=== PATIENT | male | born 1980 | race Caucasian/White ===

== ENCOUNTER 2021-09-07 01:20 | Emergency (ER) | payer MEDICAID ==
[~2021-09-07] VITALS: Ht 172.7 cm; Wt 75.0 kg
[~2021-09-07 01:20] MED LIST: ALBU6.7H9 INH; CYCL-1 PO; MAGN296S70 PO; NAPR500T6 PO; OMEP40CA21 PO; ONDA4TAB6 PO; PANT-47 PO
[2021-09-07 02:16] VITALS: BP 135/91
== END 2021-09-07 02:20 ==
LOC: ER 01:21
DX: S71.112A Laceration without foreign body, left thigh, initial encounter (principal); W54.0XXA Bitten by dog, initial encounter; Y93.89 Activity, other specified; Y92.89 Other specified places as the place of occurrence of the external cause; Y99.8 Other external cause status
CPT/HCPCS: 73590; 99283

== ENCOUNTER 2021-09-11 09:38 | Emergency (ER) | payer MEDICAID ==
[~2021-09-11] VITALS: Ht 177.8 cm; Wt 74.5 kg
[2021-09-11] MEDS ORDERED: vancomycin/NS 1 GM ADD-VANTAGE 250 ML IV ONE (10:30)
[2021-09-11 10:45] LABS: BASOPHILS % (AUTO) 0.3 % (0-1); EOSINOPHILS # (AUTO) 0.1 X10'3 (0-0.9); EOSINOPHILS % (AUTO) 0.9 % (0-6); HEMATOCRIT 39.3 % (42.0-52.0); HEMOGLOBIN 13.2 g/dl (14.0-17.9); LYMPHOCYTES # (AUTO) 1.5 X10'3 (1.1-4.8); LYMPHOCYTES % (AUTO) 14.3 % (21-51); MEAN CORPUSCULAR HEMOGLOBIN 31.4 PG (27.0-31.0); MEAN CORPUSCULAR HGB CONC 33.6 g/dL (33.0-36.5); MEAN CORPUSCULAR VOLUME 93.5 FL (78-98); MEAN PLATELET VOLUME 7.1 FL (7.4-10.4); MONOCYTES # (AUTO) 0.8 X10'3 (0-0.9); MONOCYTES % (AUTO) 8.1 % (2-12); NEUTROPHILS # (AUTO) 7.9 X10'3 (1.8-7.7); NEUTROPHILS % (AUTO) 76.4 % (42-75); PLATELET COUNT 375 X10'3 (140-440); RED CELL DISTRIBUTION WIDTH 13.3 % (11.5-14.5); WHITE BLOOD COUNT 10.4 X10'3 (4.5-11.0)
[2021-09-11 10:58] LABS: ALANINE AMINOTRANSFERASE 74 U/L (12-78); ALBUMIN 3.3 G/DL (3.4-5.0); ALBUMIN/GLOBULIN RATIO 0.8 (1.1-1.5); ALKALINE PHOSPHATASE 75 IU/L (46-116); ANION GAP 13 (8-16); ASPARTATE AMINO TRANSFERASE 48 U/L (10-37); BILIRUBIN,TOTAL 0.7 MG/DL (0.1-1.0); BLOOD UREA NITROGEN 18 MG/DL (7-18); BUN/CREATININE RATIO 21.4 (5.4-32.0); C-REACTIVE PROTEIN 6.87 MG/DL (0.0-0.5); CALCIUM 8.9 MG/DL (8.5-10.1); CHLORIDE 104 MMOL/L (99-107); CREATININE 0.84 MG/DL (0.60-1.10); GLUCOSE 94 MG/DL (70-104); POTASSIUM 4.2 MMOL/L (3.5-5.1); SODIUM 143 MMOL/L (135-145); TOTAL CARBON DIOXIDE 26.2 MMOL/L (24-32); TOTAL PROTEIN 7.5 G/DL (6.4-8.2); eGFR > 90 ML/MIN
[2021-09-11 11:45] VITALS: BP 108/69
[2021-09-11] MEDS ORDERED: DOXYCYCLINE 100MG CAPSULE PO STA (12:17)
[2021-09-11] MEDS ORDERED: DOXY100C76 PO (12:32)
== END 2021-09-11 12:40 | disposition home or self-care (01) ==
LOC: ER 09:39
DX: L03.116 Cellulitis of left lower limb (principal); G89.29 Other chronic pain; F41.9 Anxiety disorder, unspecified; F32.9 Major depressive disorder, single episode, unspecified; F12.90 Cannabis use, unspecified, uncomplicated; F15.90 Other stimulant use, unspecified, uncomplicated; W54.0XXD Bitten by dog, subsequent encounter; Z56.0 Unemployment, unspecified; Z59.00 Homelessness unspecified; Z72.89 Other problems related to lifestyle; Z87.891 Personal history of nicotine dependence; Z88.8 Allergy status to other drugs, medicaments and biological substances; Z79.899 Other long term (current) drug therapy; Z87.442 Personal history of urinary calculi
CPT/HCPCS: 36415; 80053; 83605; 84145; 85025; 85651; 86140; 96365; 99284; J3370

== ENCOUNTER 2021-09-22 06:36 | Emergency (ER) | payer MEDICAID ==
[~2021-09-22] VITALS: Ht 172.7 cm; Wt 66.5 kg
[2021-09-22 06:48] VITALS: BP 110/77
== END 2021-09-22 07:45 | disposition home or self-care (01) ==
LOC: ER 06:37
DX: T14.8XXD Other injury of unspecified body region, subsequent encounter (principal); Z88.5 Allergy status to narcotic agent; Z87.442 Personal history of urinary calculi; G89.29 Other chronic pain; F31.9 Bipolar disorder, unspecified; F12.10 Cannabis abuse, uncomplicated; F15.10 Other stimulant abuse, uncomplicated; F11.10 Opioid abuse, uncomplicated; Z79.899 Other long term (current) drug therapy; Z48.00 Encounter for change or removal of nonsurgical wound dressing; X58.XXXD Exposure to other specified factors, subsequent encounter
CPT/HCPCS: 99282; A6258; A6449

== ENCOUNTER 2021-09-23 22:54 | Emergency (ER) | payer MEDICAID ==
[~2021-09-23] VITALS: Ht 175.3 cm; Wt 63.6 kg
[2021-09-23] MEDS ORDERED: LIDOcaine 1% W/epiNEPHrine 1:100,000 20ml vial IJ ONE (23:25)
[2021-09-23] MEDS ORDERED: ketorolac trometh. 30mg/ml inj. IV ONE (23:25)
[2021-09-23 23:50] LABS: BASOPHILS # (AUTO) 0.1 X10'3 (0-0.2); BASOPHILS % (AUTO) 0.5 % (0-1); EOSINOPHILS % (AUTO) 0.3 % (0-6); HEMOGLOBIN 12.3 g/dl (14.0-17.9); LYMPHOCYTES # (AUTO) 1.7 X10'3 (1.1-4.8); LYMPHOCYTES % (AUTO) 15.7 % (21-51); MEAN CORPUSCULAR HEMOGLOBIN 30.8 PG (27.0-31.0); MEAN CORPUSCULAR HGB CONC 33.2 g/dL (33.0-36.5); MEAN CORPUSCULAR VOLUME 92.7 FL (78-98); MEAN PLATELET VOLUME 7.1 FL (7.4-10.4); MONOCYTES % (AUTO) 8.9 % (2-12); NEUTROPHILS # (AUTO) 8.1 X10'3 (1.8-7.7); NEUTROPHILS % (AUTO) 74.6 % (42-75); PLATELET COUNT 462 X10'3 (140-440); RED CELL DISTRIBUTION WIDTH 13.1 % (11.5-14.5); WHITE BLOOD COUNT 10.9 X10'3 (4.5-11.0)
[2021-09-23 23:58] LABS: ALANINE AMINOTRANSFERASE 43 U/L (12-78); ALBUMIN 3.4 G/DL (3.4-5.0); ALBUMIN/GLOBULIN RATIO 0.8 (1.1-1.5); ALKALINE PHOSPHATASE 75 IU/L (46-116); ANION GAP 9 (8-16); ASPARTATE AMINO TRANSFERASE 41 U/L (10-37); BILIRUBIN,TOTAL 0.5 MG/DL (0.1-1.0); BLOOD UREA NITROGEN 18 MG/DL (7-18); BUN/CREATININE RATIO 17.6 (5.4-32.0); CALCIUM 8.9 MG/DL (8.5-10.1); CHLORIDE 103 MMOL/L (99-107); CREATININE 1.02 MG/DL (0.60-1.10); GLUCOSE 89 MG/DL (70-104); POTASSIUM 4.2 MMOL/L (3.5-5.1); SODIUM 140 MMOL/L (135-145); TOTAL PROTEIN 7.5 G/DL (6.4-8.2); eGFR 80 ML/MIN
[2021-09-24] MEDS ORDERED: LORazepam 2 mg/ml vial IV ONE (00:10)
[2021-09-24] MEDS: clindamycin 300mg/D5W 50mL 50 ML IV SCH ×2 (00:17→01:03)
[2021-09-24] MEDS ORDERED: bacitracin 15gm ointment TP ONE (01:15)
--- NOTE | 2021-09-24 03:30 | NUR ---
DR. MERCER WAS NOTIFIED OF BRADYCARDIA WHEN PT. IS SLEEPING. HEART RATE IMPROVES UPON BEING WOKEN UP.
--- NOTE | 2021-09-24 04:26 | NUR ---
NOTIFIED DR. MERCER OF PT. HAVING NOSE BLEED.
[2021-09-24] MEDS ORDERED: CLIN-104 PO (05:31)
[2021-09-24 06:51] VITALS: BP 105/65
== END 2021-09-24 06:53 | disposition home or self-care (01) ==
LOC: ER 22:55
DX: L97.819 Non-pressure chronic ulcer of other part of right lower leg with unspecified severity (principal); M79.662 Pain in left lower leg; S81.852D Open bite, left lower leg, subsequent encounter; G89.29 Other chronic pain; F12.90 Cannabis use, unspecified, uncomplicated; F15.90 Other stimulant use, unspecified, uncomplicated; Z87.442 Personal history of urinary calculi; Z87.19 Personal history of other diseases of the digestive system; Z56.0 Unemployment, unspecified; Z59.00 Homelessness unspecified; Z72.89 Other problems related to lifestyle; Z88.8 Allergy status to other drugs, medicaments and biological substances; Z79.2 Long term (current) use of antibiotics; Z79.899 Other long term (current) drug therapy; W54.0XXD Bitten by dog, subsequent encounter
CPT/HCPCS: 36415; 73590; 80053; 83605; 84145; 85025; 87040; 87070; 87075; 87077; 87186; 96374; 96375; 99285; J1885; J2060; J3490; A6449

== ENCOUNTER 2022-11-14 21:15 | Emergency (ER) | payer MEDICAID, OTHER ==
[~2022-11-14] VITALS: Ht 172.7 cm; Wt 77.3 kg
[~2022-11-14 21:15] MED LIST changes: +ALBU6.7H14 INH; -ALBU6.7H9 INH; -MAGN296S70 PO; +MAGN296S89 PO
[2022-11-14 23:13] LABS: BASOPHILS # (AUTO) 0.1 X10'3 (0-0.2); BASOPHILS % (AUTO) 1.2 % (0-1); EOSINOPHILS % (AUTO) 0 % (0-6); HEMATOCRIT 43.8 % (42.0-52.0); HEMOGLOBIN 15.1 g/dl (14.0-17.9); LYMPHOCYTES # (AUTO) 0.5 X10'3 (1.1-4.8); MEAN CORPUSCULAR HEMOGLOBIN 31.6 PG (27.0-31.0); MEAN CORPUSCULAR HGB CONC 34.4 g/dL (33.0-36.5); MEAN CORPUSCULAR VOLUME 91.7 FL (78-98); MEAN PLATELET VOLUME 7.4 FL (7.4-10.4); MONOCYTES # (AUTO) 0.6 X10'3 (0-0.9); MONOCYTES % (AUTO) 5.3 % (2-12); NEUTROPHILS # (AUTO) 10.6 X10'3 (1.8-7.7); NEUTROPHILS % (AUTO) 89.5 % (42-75); PLATELET COUNT 204 X10'3 (140-440); RED BLOOD COUNT 4.78 X10'6 (4.70-6.10); RED CELL DISTRIBUTION WIDTH 12.7 % (11.5-14.5); WHITE BLOOD COUNT 11.8 X10'3 (4.5-11.0)
[2022-11-14 23:29] LABS: ALANINE AMINOTRANSFERASE 71 U/L (12-78); ALBUMIN 4.2 G/DL (3.4-5.0); ALBUMIN/GLOBULIN RATIO 1.2 (1.1-1.5); ALKALINE PHOSPHATASE 54 IU/L (46-116); ANION GAP 7 (8-16); ASPARTATE AMINO TRANSFERASE 25 U/L (10-37); BLOOD UREA NITROGEN 14 MG/DL (7-18); BUN/CREATININE RATIO 15.4 (10.0-20.0); CALCIUM 9.8 MG/DL (8.5-10.1); CHLORIDE 101 MMOL/L (99-107); CREATININE 0.91 MG/DL (0.60-1.10); GLUCOSE 114 MG/DL (70-104); LIPASE 56 U/L (73-393); POTASSIUM 3.9 MMOL/L (3.5-5.1); SODIUM 137 MMOL/L (135-145); TOTAL CARBON DIOXIDE 28.6 MMOL/L (24-32); TOTAL PROTEIN 7.7 G/DL (6.4-8.2); eGFR > 90 ML/MIN
[2022-11-14 23:38] LABS: PLATELET ESTIMATE NORMAL; TOTAL CELLS COUNTED 100
[2022-11-15 01:11] VITALS: BP 121/82; PULSE 93; RESP 22; O2SAT 98
[2022-11-15] MEDS ORDERED: acetaminophen 325mg tablet PO ONE (01:35)
[2022-11-15 01:58] VITALS: TEMP 98.6
== END 2022-11-15 02:00 | disposition home or self-care (01) ==
LOC: EEVIPCON 21:15 → ER 21:15
DX: R07.89 Other chest pain (principal); R51.9 Headache, unspecified; G89.29 Other chronic pain; F12.90 Cannabis use, unspecified, uncomplicated; F15.90 Other stimulant use, unspecified, uncomplicated; Z87.442 Personal history of urinary calculi; Z87.19 Personal history of other diseases of the digestive system; Z56.0 Unemployment, unspecified; Z59.00 Homelessness unspecified; Z72.89 Other problems related to lifestyle; Z87.891 Personal history of nicotine dependence; Z88.8 Allergy status to other drugs, medicaments and biological substances; Z79.899 Other long term (current) drug therapy
CPT/HCPCS: 36415; 80053; 83690; 84484; 85007; 85025; 93005; 99285